=== PATIENT | female | born 1995 | race Caucasian/White ===

== ENCOUNTER 2018-05-08 10:51 | Emergency (ER) | payer MEDICAID ==
[~2018-05-08] VITALS: Ht 157.5 cm; Wt 127.9 kg
[2018-05-08 11:11] VITALS: Ht 157.5 cm; Wt 127.9 kg
[2018-05-08] MEDS ORDERED: EFFEXOR75 MG PO (11:12)
[2018-05-08] MEDS ORDERED: ABILIFY (11:13)
[2018-05-08] MEDS ORDERED: TRAZODONE HCL50 MG PO (11:13)
[2018-05-08] MEDS ORDERED: AMBIEN10 MG PO (11:13)
[2018-05-08 12:13] VITALS: BP 106/69
== END 2018-05-08 12:16 | disposition home or self-care (01) ==
LOC: D.ER 10:51
DX: S83.92XA Sprain of unspecified site of left knee, initial encounter (principal); W18.30XA Fall on same level, unspecified, initial encounter; Y93.89 Activity, other specified; Y92.019 Unspecified place in single-family (private) house as the place of occurrence of the external cause